=== PATIENT | female | born 1950 | race Caucasian/White ===

== ENCOUNTER → 2016-11-22 | Day surgery (SDC) | payer MEDICARE ==
[~2016-11-22] VITALS: Ht 165.1 cm; Wt 99.8 kg
[~2016-11-22] MED LIST: 0.9% Sodium Chloride 1,000 ML IV SCH; ESTR10TA VG; MELO-253 PO; NAPR220C11 PO; OMEP20CA11 PO; Sodium Chloride LOK Flush 10 mL Syringe IV PRN; fentaNYL-PF 50 mCg/mL 2 mL Inj IVPUSH PRN
[2016-11-22 07:31] VITALS: BP 149/84; PULSE 73; RESP 14; O2SAT 98
--- NOTE | 2016-11-22 08:27 | PCM.ENDCOL ---
Colonoscopy Date of Service: Nov 22, 2016 Physician Delfin Davidson MD Pre Procedure Diagnosis: Screening Post Procedure Dx & Findings: Polyp hemorrhoids Procedure Colonoscopy PROCEDURE IN DETAIL: Prep adequate Withdrawal time 11 minutes After unremarkable rectal examination the Olympus video colonoscope was inserted patient's anal canal and was advanced to cecum. Landmarks were identified including the ileocecal valve and appendiceal orifice. Scope was withdrawn systematically. Visualized colonic mucosa showed healthy shiny mucosa with normal healthy-appearing vasculature. In the sigmoid colon there was a 1 mm polyp which was removed completely using cold forcep. In the rectum there were 2 less than 1 mm these were right next to each other. They were both removed completely using cold forceps. In the rectum retroflexion was done which showed hemorrhoids. Anal canal was inspected carefully on the way out and hemorrhoids noted. Impression No family or personal history of colon cancer or polyp. Polyp 3 status post complete removal Hemorrhoids Recommendation Repeat colonoscopy 10 years Presedation Assessment Risks and Benefits Informed consent was obtained from the patient after all risks and benefits including but not limited to drug reaction, infection, pain, bleeding, perforation, as well as alternatives were discussed. Patient monitoring Continuous pulse oximetry, cardiac monitoring, blood pressure monitoring, IV access, and oxygen at 2L per nasal cannula. Periprocedural Fentanyl: Fentanyl 150mcg Incrementally Midazolam: Midazolam 7mg Incrementally Complications There were no periprocedural complications identified. Post Procedure Plan Post Procedure Recommendations 1. Restrict activities today. 2. Resume normal activities in the morning. 3. Resume medications. 4. Patient informed of normal post procedure side effects as bloating, drowsiness, blood streaking in the stool. 5. average risk CRCS. If colon polyps come back as: -Hyperplastic- can repeat colonoscopy in 10 years -Tubular adenoma- repeat colonoscopy in 5 years -Tubulovillous/villous adenoma- repeat colonoscopy in 3 years -If any dysplasia- return to clinic as soon as possible 6. Please don't hesitate to call me with any questions. Delfin Davidson MD Nov 22, 2016 08:27
[2016-11-22 08:30] VITALS: BP 127/62; PULSE 70; RESP 14; O2SAT 97
[2016-11-22 08:40] VITALS: BP 129/63; PULSE 63; O2SAT 98
[2016-11-22 08:47] VITALS: BP 141/84; PULSE 65; O2SAT 99
--- NOTE | 2016-11-23 17:32 | PATH ---
SURGICAL PATHOLOGY Attending Physician:Delfin Davidson M.D. CASE STATUS: Signed Out PATIENT NAME: GARTH AYERS PID: [id number] : 1950 DATE COLLECTED:11/22/2016 17:30 SPECIMEN: 1: Colon, Polyp 2: Rectum, Biopsy CLINICAL HISTORY: 1). SIGMOID POLYP 2). RECTAL POLYPS FINAL DIAGNOSIS: 1. Sigmoid Colon Polyp, Biopsy: Hyperplastic polyp. Melanosis coli. 2. Designated "Rectal Polyps", Biopsies: Hyperplastic polyp x1; see comment. ICD10: K63.5 NOTE: In the specimen designated "rectal polyps", only on portion of tissue is received for histologic evaluation. GROSS DESCRIPTION: The specimen is received in two formalin filled containers labeled with the patient's name. 1). The specimen is labeled "sigmoid polyp" and consists of 2 tiny portions of tissue which aggregate to 0.1 x 0.1 x 0.1 CM. The specimen is entirely submitted in cassette 1A. 2). The specimen is labeled "rectal polyps" and consists of an extremely tiny less than 0.1 CM portion of tissue which is entirely submitted in cassette 2A. 11/22/2016DC ICD-9 CODES: CPT CODES: 1: 96636 2: 25341 Electronically Signed Out Víctor Luke MD, Ph.D. Formerly [facility]ology [facility], [place] [address] Technical component performed at [facility], [address] [place] [address] Ave[address], [place], [address]
== END | disposition home or self-care (01) ==
LOC: END 00:32
PROVIDERS: ATTEND Internal Medicine
DX: Z12.11 Encounter for screening for malignant neoplasm of colon (principal); K63.5 Polyp of colon; K62.1 Rectal polyp; K64.8 Other hemorrhoids; K63.89 Other specified diseases of intestine; G47.33 Obstructive sleep apnea (adult) (pediatric); E66.9 Obesity, unspecified; Z68.36 Body mass index [BMI] 36.0-36.9, adult
CPT/HCPCS: 45380; 88305; 99153; G0500; J2250; J3010; J7030